=== PATIENT | female | born 1965 | race Caucasian/White ===

== ENCOUNTER → 2018-02-18 | Day surgery (SDC) | payer OTHER ==
[~2018-02-18] VITALS: Ht 154.9 cm; Wt 71.7 kg
--- NOTE | 2018-02-18 09:09 | Operative Report ---
Operative/Inv Procedure Report Surgery Date: 02/18/18 Name of Procedure: Intrathecal Morphine Bolus injection (700 destiny dose) Pre-Operative Diagnosis: S/P thoraco lumbar fusion with chronic back and neck pain Post-Operative Diagnosis: same Estimated Blood Loss: none Surgeon/Resolution Analyst: Иван Brady MD Anesthesia: moderate sedation Monitors: As per anesthesia IV Fluids: As per anesthesia Implants: none Urine Output: per anesthesia Drains: none Specimens: none Microbiology: none Tourniquet: none Complications: none Condition: stable Operative Indication: Ms. Arshad is a 53 year old female with chronic back and neck pain with HX of DDD spine and s/p fusion of Thoraco lumbar spine. She has been on oral opioid therapy with MME >120 mg and continues to reprot on going back pain. Few years back she was diagnosed with breast cancer and is S/p bilateral mastecomy. I discussed with the pt about neuroaxial analgeisa inthe form of the IT opioid bouls trial and she expressed interest Risks and benefits of the procedure were expained to the pt and she consented. 1 Gm of Kefzol was given preoperatively Operative/Procedure Note Note: Patient was transported to OR , Placed prone with support to all the pressure points and anesthesia was carried out by the team.Thoraco lumbar spine was prepared and draped sterile AP / Lateral fluoroscopy was used and 2 % lidocaine was used for local infiltration. The amount of fluoroscopy time and the lido used is in the records of medicine technologist and nurse, respectively Evidence of fusion of thoraco lumbar spine up to t he L2 level. At L3/4 inter laminar space, using 22 G x 5 inc Quincke tip spinal needle, intrathecal space was accessed in single attempt without heme or lower extremity paraesthesia. The position of the needle in the IT space was confirmed by injection of 1 cc of Omnipaque 240 and noticing the intrathecal spread of the contrast. At 8.25 am 700 destiny of preservative free morphine sulfate ( duramorph) was injected with free aspiration of CSF in between the injection of total amount . The needle was withdrawn, puncture site cleaned and dressed sterile. The patient was transferred to PACU with post procedure instructions for observation for next 6 hrs. I discussed with Anesthesia MD, Dr. Ashley MD anesthesia, about the pt and to treat in the event of PACKAGING INSPECTOR / Respiratory depression from IT Morphine bolus injection. Findings: evidence of thraco lumbar fusion with hardware + Discharge Disposition: PACU Additional Comments: none
--- NOTE | 2018-02-18 11:15 | RADIOLOGY REPORT ---
EXAMINATION: Intraoperative fluoroscopy CLINICAL INFORMATION: Lumbar morphine bolus COMPARISON: None. TECHNIQUE: Intraoperative fluoroscopy was provided for use by Dr. Brady. A total of 9 images were saved to PACS. A radiology was not present during today's imaging. TOTAL FLUOROSCOPIC TIME: 53 seconds FINDINGS\E\IMPRESSION: Intraoperative fluoroscopy provided for use by Dr. Brady.. Please see operative note for detailed findings.
== END ==
LOC: STS 01-01 07:00
DX: M96.1 Postlaminectomy syndrome, not elsewhere classified (principal); M54.89 Other dorsalgia; M54.2 Cervicalgia; Z85.3 Personal history of malignant neoplasm of breast; E03.9 Hypothyroidism, unspecified
CPT/HCPCS: 72100; 93005; 93010; J0690; J2250

== ENCOUNTER → 2018-03-17 | Day surgery (SDC) | payer OTHER ==
[~2018-03-17] VITALS: Ht 154.9 cm; Wt 72.6 kg
--- NOTE | 2018-03-18 07:40 | RADIOLOGY REPORT ---
EXAMINATION: Intraoperative fluoroscopy CLINICAL INFORMATION: Morphine pump implantation COMPARISON: lumbar spine fluoroscopy 02/18/2018 TECHNIQUE: Intraoperative fluoroscopy was provided for use by Dr. Brady. A total of 30 images were saved to PACS. A radiologist was not present during imaging. TOTAL FLUOROSCOPIC TIME: 92.1 seconds FINDINGS\E\IMPRESSION: Intraoperative fluoroscopy provided for use by Dr. Brady. Please see operative note for detailed findings.
--- NOTE | 2018-03-18 08:49 | Operative Report ---
Operative/Inv Procedure Report Surgery Date: 03/17/18 Name of Procedure: Implant of Intrathecal Drug Delivery System -- Synchromed -II and Ascenda Intrathecal Catheter of JoinTV system, under fluoroscopic guidance Pre-Operative Diagnosis: S/P Thoraco Lumbar Fusion with chronic back and neck pain. Hx of Breast cancer, S/P Bilateral breast surgery Post-Operative Diagnosis: Same Estimated Blood Loss: 50ml to 100ml Surgeon/Stretching Press Operator: Jose Antonio STAPLETON,Иван Garcia. None Anesthesia: local monitored anesthesi Monitors: As per Anesthesia IV Fluids: As per Anesthesia Implants: Synchromed -II ( 20 ML) reservoir and Ascenda Intrathecal Catheter Urine Output: As per Anesthesia Drains: None Specimens: None Microbiology: None Tourniquet: None Complications: None Condition: Stable Operative Indication: Ms. Arshad is a 53 year old patient with past Hx of lower back pain, S/P multiple surgical procedures that include T/L fusion. She has been diagnosed with Bilateral Breast Ca and treated with mastectomy, CT/RT. She is on high oral opioid therapy with inadequate pain relief. She reported Excellent relief of back pain with IT opioid bolus Trial and expressed interest in the above surgical therapy. I explained to the pt about the risks and benefits of the above procedure and consent for the procedure was obtained. Operative/Procedure Note Note: The future site of the Synchromed-II reservoir implant over the right anterior lateral abdominal wall was marked with the pt in standing position, away from bony prominences. The patient was given IV Kefzol, placed in lateral decubitus position with right side up and the surgical site was prepped and draped sterile The Fluoroscopic time and the amount of local anesthetic used ( PF lidocaine 2 % and Bupivacaine 0.5% with epi) is reflected in the non morse intercept technician and tank wagon driver notes, respectively. Fluoroscopic study of the spine revealed evidence of DDD, Thoracic spine kyphosis, lumbar spine scoliosis and fusion of the Thoracolumbar spine with bilateral Machado rods and caudal extent of fusion of up to L3 with bilateral pedicle screws. After infiltration of skin and underlying tissues in the lumbar area, the Toughy needle provided with JoinTV kit was introduced in to the intrathecal space at L3/4 level in single attempt without paresthesia of lower extremity. Free flow of CSF was established an Ascenda catheter was carefully advanced in to the intrathecal space to the level of T8. At this level further advancement was not possible without reported spinal pain , by the patient. The stylet from the catheter was removed and free flow of CSF was noted from this point till the point of connection of the catheter to the sutureless connector. The tip of catheter also was noted through out the procedure to be at the above level. At this point the Catheter was anchored to the para spinal tissues with the anchor provided with the kit. In the right lower abdominal area, skin was incised and deepened to raise superior and inferior subcutaneous flaps with blunt and sharp dissection. Using Tunnel faye, subcutaneous path was carefully created from the abdominal wall wound to the lumbar wound. The catheter was brought to the abdominal wound, about 14 cm of excess catheter was removed. The Synchromed reservoir was treated by removing the factory filled fluid and replacing it with the Infumorph 1 mg/ml, Preservative free Morphine sulfate total of 20 ML. The distal end of the catheter was connected to the reservoir using sutureless connector. Free follow of CSF was noted up on aspiration from side port and injection of Omnipaque - 240 revealed Intrathecal spread of contrast and the tip of Catheter to be t T8 level. At this point the reservoir was anchored to the abdominal wall through the 4 loops using slik. Hemostasis was secured, both wounds irrigated with bacitracin + NS solution, closed in layers with 2-0 vicryl, skin with nancy. The pt remained stable hemodynamically, and intact neurologically with 5/5 MP ankle DF and PF. The Synchromed -II was programmed to infuse 1 mg/ day - simple continuous infusion with 2 cc reservoir alarm date - 04/06/18. Patent was discharged with post op instructions.s - Additional Comments: none
== END ==
LOC: STS 03-09 03:23 → SDA 03-09 07:00 → EDSTATUS 03-09 07:00 → STS 02:58
DX: M96.1 Postlaminectomy syndrome, not elsewhere classified (principal); M47.26 Other spondylosis with radiculopathy, lumbar region; M47.892 Other spondylosis, cervical region; M25.50 Pain in unspecified joint; C50.919 Malignant neoplasm of unspecified site of unspecified female breast; Z90.13 Acquired absence of bilateral breasts and nipples; Z79.891 Long term (current) use of opiate analgesic; A69.23 Arthritis due to Lyme disease; E03.9 Hypothyroidism, unspecified
CPT/HCPCS: 76000; C1755; C1772; J0690; J1885; J2001; J2250